=== PATIENT | male | born 1940 | race Caucasian/White ===

== ENCOUNTER 2023-09-13 12:44 | Outpatient (RCR) | payer MEDICARE, BC, SELFPAY ==
[2023-09-13 13:35] LABS: Creatinine* 1.3 mg/dL (0.5-1.5); Est. Creatinine Clearance* 37.95; Estimated Glomerular Filt Rate 56 ml/min
--- NOTE | 2023-09-23 11:24 | ONC.NURNOTE ---
Dx: Bladder cancer
== END 2024-03-11 23:59 | disposition home or self-care (01) ==
LOC: CCIC 12:44
PROVIDERS: Visit Provider Physician Assistant
DX: C67.8 Malignant neoplasm of overlapping sites of bladder (principal)
CPT/HCPCS: 36415; 36592; 82565